=== PATIENT | female | born 1935 | race African-American/Black ===

== ENCOUNTER 2017-02-19 12:27 | Inpatient (IN) | payer MEDICARE ==
[~2017-02-19] VITALS: Ht 170.2 cm; Wt 81.6 kg
[~2017-02-19 12:27] MED LIST: ADALAT CC90 MG; ADVAIR 100/501 DISK INH; ASPIRIN EC81 M1 PO; ATARAX 25 MG TA25 MG PO; FLUTICASONE PRO16 GM NS; HUMULIN 70100 UNIT/1; HYDROCODONE-APA1 TAB PO; LASIX20 MG PO; LOFIBRA134 MG PO; MORPHINE IMMEDI15 MG; NITROQUICK0.4 MG SL; NOVOLIN 70/30 110 ML; OMEPRAZOLE20 M1 PO; SPIRIVA18 MCG INH; VENTOLIN HFA18 GM INH; VITAMIN D50000 UNIT PO; ZESTRIL20 MG
[2017-02-19 13:19] LABS: BASOPHILS 0.1 % (0-2); HEMATOCRIT 34.4 % (36.0-48.0); HEMOGLOBIN 11.4 g/dL (12-16); IMMATURE GRANULOCYTES 0.1 % (0-5); LYMPHOCYTES 17.7 % (15-50); MCH 30.8 pg (26.0-34.0); MCHC 33.1 g/dL (31.0-37.0); MEAN PLATELET VOLUME 10.8 fL (7.4-10.4); MONOCYTES 7.1 % (2-11); PLATELET COUNT 245 10x3/uL (130-400); WBC 7.3 10x3/uL (4.8-10.8)
[2017-02-19 13:42] LABS: ALBUMIN 3.6 g/dL (3.4-5.0); ALKALINE PHOSPHATASE 45 U/L (46-116); ALT (SGPT) 19 U/L (10-68); BILIRUBIN - TOTAL 0.27 mg/dL (0.2-1.3); CALCIUM 8.6 mg/dL (8.5-10.1); CARBON DIOXIDE 32.1 mmol/L (21.0-32.0); CHLORIDE - SERUM 102 mmol/L (98-107); CKMB 0.7 U/L (0.0-3.6); CREATINE KINASE 56 UL (21-215); CREATININE - SERUM 2.3 mg/dL (0.6-1.3); POTASSIUM - SERUM 3.3 mmol/L (3.5-5.1); PRO BNP 953 pg/mL (0-450); PROTEIN - SERUM 7.4 g/dL (6.4-8.2); SODIUM 140 mmol/L (136-145); UREA NITROGEN 35 mg/dL (7-18); eGFR NON AFRICAN AMERICAN 21 mL/min (90-120)
[2017-02-19 13:45] VITALS: BP 162/63; Ht 170.2 cm; Wt 81.6 kg
[2017-02-19 13:47] LABS: CALC OSMOLALITY 291 mosm/kg (275-300); GLUCOSE 196 mg/dL (74-106); TROPONIN-I < 0.017 ng/mL (0.000-0.060)
--- NOTE | 2017-02-19 14:03 | NUR ---
ARRIVED FROM ADMISSIONS VIA WC. PT PLACED IN HOSPITAL GOWN. SOME SOB NOTED. SEE ASSESSMENT FOR SPECIFICS. WILL CONTINUE TO MONITOR.
--- NOTE | 2017-02-19 16:00 | NUR ---
SITTING UP IN BED RESTING COMFORTABLY. OFFERS NO COMPLAINTS. CALL LIGHT IN REACH. WILL CONTINUE TO MONITOR
[2017-02-19 16:37] VITALS: BP 167/68
[2017-02-19 19:00] VITALS: BP 172/63
--- NOTE | 2017-02-19 19:35 | NUR ---
REST IN BED, AND WATCH TV, STATE SHE WATCH A GOOD TV CHANNEL.
[2017-02-19] MEDS ORDERED: MUCUS RELIEF400 MG PO (19:53)
[2017-02-19] MEDS ORDERED: NOVOLOG100 U/M1 SC (20:07)
[2017-02-19] MEDS ORDERED: ADVAIR HFA [SP]12 GM INH (20:08)
[2017-02-19] MEDS ORDERED: LEVEMIR100 U/M1 SC (20:09)
[2017-02-19 23:30] LABS: CKMB 0.6 U/L (0.0-3.6); CREATINE KINASE 60 UL (21-215)
[2017-02-20] VITALS: BP 155/70
--- NOTE | 2017-02-20 01:03 | NUR ---
REST IN BED, EYE CLOSE, CALL LIGHT WITHIN REACH.
[2017-02-20] MEDS ORDERED: NIFEDIPINE ER60 MG PO (01:29)
[2017-02-20 04:00] VITALS: BP 177/71
[2017-02-20 06:02] LABS: BASOPHILS 0.2 % (0-2); EOSINOPHILS 8.7 % (0-7); HEMATOCRIT 32.4 % (36.0-48.0); HEMOGLOBIN 10.8 g/dL (12-16); IMMATURE GRANULOCYTES 0.2 % (0-5); MCH 30.8 pg (26.0-34.0); MCHC 33.3 g/dL (31.0-37.0); MCV 92.3 fL (80.0-100.0); MONOCYTES 8.3 % (2-11); NEUTROPHILS 50.6 % (40-80); PLATELET COUNT 242 10x3/uL (130-400); RBC 3.51 10x6/uL (4.00-5.40); RDW 13.2 % (11.5-14.5); WBC 6.1 10x3/uL (4.8-10.8)
[2017-02-20 06:39] LABS: ALBUMIN 3.2 g/dL (3.4-5.0); ALKALINE PHOSPHATASE 41 U/L (46-116); CALCIUM 8.6 mg/dL (8.5-10.1); CARBON DIOXIDE 31.1 mmol/L (21.0-32.0); CHLORIDE - SERUM 102 mmol/L (98-107); CKMB 0.5 U/L (0.0-3.6); CREATINE KINASE 43 UL (21-215); CREATININE - SERUM 2.4 mg/dL (0.6-1.3); POTASSIUM - SERUM 3.3 mmol/L (3.5-5.1); PROTEIN - SERUM 6.7 g/dL (6.4-8.2); SODIUM 142 mmol/L (136-145); TROPONIN-I 0.019 ng/mL (0.000-0.060); UREA NITROGEN 41 mg/dL (7-18); eGFR NON AFRICAN AMERICAN 20 mL/min (90-120)
[2017-02-20 06:42] LABS: ALT (SGPT) 13 U/L (10-68); CALC OSMOLALITY 293 mosm/kg (275-300); GLUCOSE 110 mg/dL (74-106)
--- NOTE | 2017-02-20 07:05 | NUR ---
RECEIVED REPORT. ASSUMED CARE OF PATIENT. CALL LIGHT WITHIN REACH. PATIENT RESTING IN BED WITH EYES OPEN. RESP EVEN AND UNLABORED. DENIES NEEDS. PATIENT STATES SHE HAS PAIN TO HER RIGHT SHOULDER FOR ABOUT 3 MONTHS THAT HAS NOT BEEN ADDRESSED BY HER PCP. PATIENT HAS NO OTHER COMPLAINTS TO REPORT. NO DISTRESS.
[2017-02-20 08:10] VITALS: BP 160/63
--- NOTE | 2017-02-20 10:38 | NUR ---
MEDICATED FOR PAIN AT THIS TIME AND CALLED [facility], SPOKE WITH NIK TO REQUEST EGGCRATE MATTRESS FOR PATIENT.
--- NOTE | 2017-02-20 12:00 | NUR ---
FSBS 228. 8 UNITS HUMULIN R ADMINISTERED PER SLIDING SCALE.
--- NOTE | 2017-02-20 13:00 | NUR ---
EGG CRATE MATTRESS APPLIED TO BED.
[2017-02-20 15:59] VITALS: BP 128/59
--- NOTE | 2017-02-20 16:52 | NUR ---
FSBS 218. 8 UNITS HUMULIN INSULIN ADMINISTERED PER SLIDING SCALE.
--- NOTE | 2017-02-20 19:50 | NUR ---
REST IN BED AND WATCH TV.
--- NOTE | 2017-02-21 03:42 | NUR ---
REST QUIETLY IN BED, CALL LIGHT WITHIN REACH.
[2017-02-21 04:00] VITALS: BP 129/61
--- NOTE | 2017-02-21 06:20 | NUR ---
PT LYING IN BED, EYES CLOSED, RESPIRATIONS EVEN AND UNLABORED. CONTINUE TO MONITOR CLOSELY. BED LOW, CALL LIGHT IN REACH, SIDE RAILS X 2, HOB 25 - 30 DEGREES.
[2017-02-21 07:11] LABS: BASOPHILS 0.4 % (0-2); HEMATOCRIT 31.9 % (36.0-48.0); HEMOGLOBIN 10.5 g/dL (12-16); IMMATURE GRANULOCYTES 0.2 % (0-5); LYMPHOCYTES 33.3 % (15-50); MCH 30.4 pg (26.0-34.0); MCHC 32.9 g/dL (31.0-37.0); MCV 92.5 fL (80.0-100.0); MEAN PLATELET VOLUME 11.1 fL (7.4-10.4); MONOCYTES 9.6 % (2-11); NEUTROPHILS 44.5 % (40-80); PLATELET COUNT 225 10x3/uL (130-400); RBC 3.45 10x6/uL (4.00-5.40); RDW 13.4 % (11.5-14.5); WBC 4.6 10x3/uL (4.8-10.8)
[2017-02-21 07:36] LABS: ANION GAP 11.5 mmol/L (8-16); BILIRUBIN - TOTAL 0.2 mg/dL (0.2-1.3); CALCIUM 8.6 mg/dL (8.5-10.1); CARBON DIOXIDE 31.2 mmol/L (21.0-32.0); CREATININE - SERUM 2.2 mg/dL (0.6-1.3); POTASSIUM - SERUM 3.7 mmol/L (3.5-5.1); PROTEIN - SERUM 6.5 g/dL (6.4-8.2)
[2017-02-21 08:00] VITALS: BP 143/64
--- NOTE | 2017-02-21 08:07 | NUR ---
AM ROUNDING- RECEIVED REPORT FROM CERTIFIED ADAPTIVE PHYSICAL EDUCATOR NURSE CORNELIUS. PT IS CURRENTLY SITTING UP IN BED WITH EYES OPEN RESTING. PT STATES SHE HAS PAIN IN SHOULDER AREA. ON ROOM AIR. ON MONITOR SHOWING SR, HR 78. IV SEEN TO LEFT WRIST THAT IS CURRENTLY SALINE LOCKED. NO NEED AT CURRENT TIME. WILL CONTINUE TO MONITOR AND CONTINUE WITH PLAN OF CARE.
--- NOTE | 2017-02-21 11:50 | NUR ---
0930- UPON DOING SHIFT ASSESSMENT AND AM MEDICATIONS, PT DENIES ANY CHEST PAIN AT CURRENT TIME. WILL CONTINUE TO MONITOR.
[2017-02-21 12:00] VITALS: BP 125/54
--- NOTE | 2017-02-21 14:59 | NUR ---
PT IS CURRENTLY SITTING UP IN BED WITH HOB ELEVATED AT 30 DEGREES RESTING WATCHING TV. PT STATES SHE IS OK AND DENIES ANY FURTHER NEED AT THIS TIME. CALL LIGHT IS IN REACH. WILL CONTINUE TO MONITOR.
[2017-02-21 16:00] VITALS: BP 135/55
--- NOTE | 2017-02-21 18:40 | NUR ---
1800- PT IS CURRENTLY SITTING UP IN BED WITH EYES OPEN RESTING. PT DENIES ANY NEED AT THIS TIME. CALL LIGHT IS IN REACH. WILL CONTINUE TO MONITOR.
[2017-02-21 19:00] VITALS: BP 109/50
[2017-02-22] VITALS: BP 124/53
--- NOTE | 2017-02-22 01:53 | NUR ---
NURSING ROUNDS 02/21/17 21:00 - PT LYING IN BED, AWAKE, ALERT, ORIENTED, DENIED ANY NEEDS. PT REFUSES SCD'S AT THIS TIME. CONTINUE TO MONITOR CLOSELY. BED LOW, CALL LIGHT IN REACH, SIDE RAILS X 2, HOB 30 DEGREES.
--- NOTE | 2017-02-22 03:26 | NUR ---
PT GIVEN LEMON NOOKSACK SODA, VANILLA PUDDING AND SUGAR FREE JELLO FOR HS SNACK IMMEDIATELY AFTER 21:00 INSULIN ADMINISTRATION.
[2017-02-22 04:00] VITALS: BP 138/62
--- NOTE | 2017-02-22 05:15 | NUR ---
PT C/O FREQUENT AND RECURRENT COUGH, CAUSING DISTURBANCE IN REST AND SLEEP. PRN TUSSIONEX GIVEN. PT DENIES ANY OTHER NEEDS. CONTINUE TO MONITOR CLOSELY.
[2017-02-22 05:55] LABS: BASOPHILS 0.3 % (0-2); EOSINOPHILS 9.4 % (0-7); HEMATOCRIT 30.6 % (36.0-48.0); HEMOGLOBIN 10.2 g/dL (12-16); IMMATURE GRANULOCYTES 0.2 % (0-5); LYMPHOCYTES 37.1 % (15-50); MCH 30.9 pg (26.0-34.0); MCHC 33.3 g/dL (31.0-37.0); MCV 92.7 fL (80.0-100.0); MEAN PLATELET VOLUME 11.2 fL (7.4-10.4); MONOCYTES 12.3 % (2-11); NEUTROPHILS 40.7 % (40-80); PLATELET COUNT 223 10x3/uL (130-400); RDW 13.3 % (11.5-14.5)
[2017-02-22 05:59] LABS: WBC 5.8 10x3/uL (4.8-10.8)
[2017-02-22 06:19] LABS: BILIRUBIN - TOTAL 0.3 mg/dL (0.2-1.3); CALCIUM 8.6 mg/dL (8.5-10.1); CARBON DIOXIDE 29.1 mmol/L (21.0-32.0); CREATININE - SERUM 2.1 mg/dL (0.6-1.3); POTASSIUM - SERUM 4.1 mmol/L (3.5-5.1)
[2017-02-22 07:17] LABS: ERYTHROCYTE SEDIMENTATION RATE 15 mm/hr (0-30)
--- NOTE | 2017-02-22 07:55 | NUR ---
0715- AM ROUNDING- RECEIVED REPORT FROM EDITOR NURSE CELIO. PT IS CURRENTLY SIITIN LAYING IN BED WITH HOB ELEVATED AT 30 DEGREES WITH EYES OPEN RESTING. PT STATES SHE WOULD LIKE TO GET CLEANED UP TODAY AND GET SOME BRIEFS OR SOMETHING. I INFORMED PT THAT I CAN GET HER BRIEFS AND GET HER STUFF FOR A SHOWER. ON ROOM AIR. ON MONITOR SHOWING SR, HR 71. IV SEEN TO LEFT WRIST THAT IS CURRENTLY SALINE LOCKED. NO NEED AT THIS CURRENT TIME. WILL CONTINUE TO MONITOR AND CONTINUE WITH PLAN OF CARE.
[2017-02-22 08:00] VITALS: BP 154/65
--- NOTE | 2017-02-22 10:15 | NUR ---
MOO DON CAME TO INFORM ME THAT PT HAD THROWN UP IN BED. I WENT TO CHECK ON PT. I ASKED PT IF SHE THREW UP HER BREAKFAST DUE TO PT MENTIONING EARLIER ON SHIFT SHE ATE ALOT FOR BREAFAST AND SHE FELT LIKE SHE WAS GOING TO THROW UP. PT STATES SHE FEELS A LITTLE BETTER BUT STILL NAUSEOUS. WILL PAGE DR. GARCIA AND SEE ABOUT GETTING PT SOMETHING FOR N/V.
--- NOTE | 2017-02-22 10:21 | NUR ---
CALLED DR. DUVALL OFFICE. SPOKE WITH DR. DUVALL NURSE ZANDER. INFORMED HER OF PT BEING NAUSEOUS AND VOMITIING JUST A LITTLE WHILE AGO. NEW ORDERS RECEIVED PER DR. GARCIA. WILL PUT ORDERS IN GIVEN AND CONTINUE TO MONITOR.
[2017-02-22 12:00] VITALS: BP 172/63
[2017-02-22 16:00] VITALS: BP 148/60
--- NOTE | 2017-02-22 16:34 | NUR ---
Patient Name: CLAUDIA RICHARD Admission Status: Elective Accout number: [id number] Admission Date: 02-21-2017 : 1935 Admission Diagnosis: Attending: KAI Current LOS: 1 Anticipated DC Date: Planned Disposition: Home Primary Insurance: MEDICARE A & B Discharge Planning Comments: * Is the patient Alert and Oriented? Yes 0 * How many steps to enter\exit or inside your home? 2 0 * PCP DR. GARCIA 0 * Pharmacy [facility] 0 * Preadmission Environment Home with Family 0 * ADLs Independent 0 * Equipment Cane Nebulizer Walker 0 * Other Equipment UNKNOWN MEDICAL EQUIPMENT PROVIDER: [phone] 0 * List name and contact numbers for known caregivers / representatives who currently or will assist patient after discharge: MODESTO OSBORNE, DTR, 0 * Community resources currently utilized None 0 * Please name any agencies selected above. NONE 0 * Additional services required to return to the preadmission environment? No 0 * Can the patient safely return to the preadmission environment? Yes 0 * Has this patient been hospitalized within the prior 30 days at any hospital? No 0 CM MET WITH PT AND DAUGHTER, MODESTO, IN ROOM TO DISCUSS DISCHARGE PLANNING AND NEEDS. PT REPORTS LIVING AT HOME INDEPENDENTLY WITH HER ADULT DAUGHTER. PT HAS CANE, NEBLUIZER AND WALKER WITH OUT OF STATED MEDICAL EQUIPMENT PROVIDER. PT HAS NO OUTSIDE SERVICES ASSISTING IN THE HOME. CM DISCUSSED AVAILABILITY OF HOME HEALTH, REHAB SERVICES AND MEDICAL EQUIPMENT. PT AND DAUGHTER DENIED DISCHARGE NEEDS AT THIS TIME, DAUGHTER WILL PICK PT UP FOR DISCHARGE HOME. PT'S DAUGHTER ASKED IF INSURANCE WOULD COVER ELEVATED TOILET SEAT; CM CALLED PT'S EQUIPMENT PROVIDER MULTIPLE TIMES AND RECEIVED BUSY SIGNAL ([phone]). CM CALLED [facility] IN [place], WAS INFORMED THAT INSURANCE DID NOT COVER ETS, OUT OF POCKET COSTS IS ABOUT $40. CM NOTIFIED PT AND DAUGHTER IN ROOM. CM TO FOLLOW AND ASSIST NEEDED. Dumper Mold Cleaner: David Carlson
--- NOTE | 2017-02-22 18:11 | NUR ---
PT IS CURRENTLY SITTING UP IN BED WITH EYES OPEN RESTING. PT DENIES ANY NEED AT CURRENT TIME. CALL LIGHT IS IN REACH. WILL CONTINUE TO MONITOR.
[2017-02-22 19:00] VITALS: BP 131/48
[2017-02-22 20:07] LABS: BASOPHILS 0.1 % (0-2); EOSINOPHILS 0.1 % (0-7); HEMATOCRIT 32.3 % (36.0-48.0); HEMOGLOBIN 10.3 g/dL (12-16); IMMATURE GRANULOCYTES 0.3 % (0-5); LYMPHOCYTES 7.9 % (15-50); MCH 30.7 pg (26.0-34.0); MCHC 31.9 g/dL (31.0-37.0); MEAN PLATELET VOLUME 11.4 fL (7.4-10.4); MONOCYTES 6.6 % (2-11); PLATELET COUNT 235 10x3/uL (130-400); RBC 3.35 10x6/uL (4.00-5.40); RDW 13.3 % (11.5-14.5); WBC 6.9 10x3/uL (4.8-10.8)
[2017-02-22 20:08] LABS: MCV 96.4 fL (80.0-100.0)
[2017-02-22 20:11] LABS: APTT 36.9 SECONDS (22.8-39.4); INR 1.04 (0.85-1.17); PROTIME 13.5 SECONDS (11.6-15.0)
--- NOTE | 2017-02-22 20:40 | NUR ---
PT AWAKE, ALERT, ORIENTED, LYING IN BED, DENIES ANY NEEDS. CONTINUE TO MONITOR CLOSELY. BED LOW, CALL LIGHT IN REACH, SIDE RAILS X 2, HOB 30 DEGREES.
[2017-02-23] VITALS (12 sets, daily range): BP systolic 132–196; BP diastolic 48–79
[2017-02-23 06:40] LABS: BASOPHILS 0 % (0-2); EOSINOPHILS 0.1 % (0-7); HEMATOCRIT 32.5 % (36.0-48.0); HEMOGLOBIN 10.4 g/dL (12-16); IMMATURE GRANULOCYTES 0.1 % (0-5); LYMPHOCYTES 5.2 % (15-50); MEAN PLATELET VOLUME 11.2 fL (7.4-10.4); MONOCYTES 6.6 % (2-11); PLATELET COUNT 238 10x3/uL (130-400); RBC 3.47 10x6/uL (4.00-5.40); RDW 13.2 % (11.5-14.5); WBC 7.7 10x3/uL (4.8-10.8)
[2017-02-23 06:41] LABS: MCV 93.7 fL (80.0-100.0)
[2017-02-23 06:50] LABS: INR 1.04 (0.85-1.17); PROTIME 13.5 SECONDS (11.6-15.0)
[2017-02-23 06:51] LABS: APTT 33.9 SECONDS (22.8-39.4)
--- NOTE | 2017-02-23 07:00 | NUR ---
REPORT RECIEVED FROM OFF GOING NURSE. PT IN BED. ALERT AND ORIENTED X4. REMAINS NPO FOR TODAY BRONCHOSCOPY. D5 1/5 INFUSING AT 50 INTO HER LEFT HAND PIV. DRESSING C/D/I. HAS A WET BUT NON PRODUCTIVE COUGH. NO FAMILY AT HER BED SIDE. DENIES SOB OR PAIN AT THIS TIME. 0 NEEDS VOICED AT THIS TIME. CALL LIGHT IN REACH. WILL CONT POC
[2017-02-23 07:01] LABS: ALBUMIN 3.1 g/dL (3.4-5.0); ANION GAP 10.2 mmol/L (8-16); BILIRUBIN - TOTAL 0.26 mg/dL (0.2-1.3); CALCIUM 8.8 mg/dL (8.5-10.1); CARBON DIOXIDE 30.3 mmol/L (21.0-32.0); POTASSIUM - SERUM 4.5 mmol/L (3.5-5.1)
[2017-02-23 07:02] LABS: CREATININE - SERUM 2.8 mg/dL (0.6-1.3)
--- NOTE | 2017-02-23 09:00 | NUR ---
PILING SETTER ASSISTED PT TO SHOWER. BATHING SUPPLIES PROVIDED.
[2017-02-23 09:15] LABS: IMMUNOGLOBULIN E 132 IU/mL (0-100)
--- NOTE | 2017-02-23 09:41 | EC ---
PATIENT:CLAUDIA RICHARD DATE OF SERVICE: 02/19/17 SEX: F MEDICAL RECORD: [id number] DATE OF : [birth year] LOCATION:D. D.213 AGE OF PATIENT: 81 ADMISSION DATE: 02/21/17 REFERRING PHYSICIAN: INTERPRETING PHYSICIAN: MICHAEL LINDA MD ECHOCARDIOGRAM REPORT ECHO CHARGES 4 ECHO COMPLETE CLINICAL DIAGNOSIS: CHEST PAIN,DYSPNEA,PULM EDEMA ECHOCARDIOGRAPHIC MEASUREMENTS (adult normal given) AC root (d.<3.7cm) 3.5 cm LV Septum d (<1.2 cm> 1.2 cm Valve Excursion 1.8 cm LV Septum (systole) 1.3 cm Left Atria (s.<4.0cm> 4.0 cm LVPW d(<1.2cm) 1.4 cm RV (d.<2.3cm) 3.2 cm LVPW (sytole) 1.5 cm LV diastole(<5.6CM) 5.5 cm MV E-F(>70mm/sec) cm LV systole 4.3 cm LVOT Diameter 1.7 cm MV exc.(>10mm) 1.3 cm Est.ejection fraction (50-75%) % Pericardial Effusion N DOPPLER: LVIT cm/sec A 153 cm/sec E 104 cm/sec LA cm/sec RVSP 33 mmHg LVOT 140 cm/sec AOP1/2T m/s Asc. Ao 170 cm/sec RVOT 117 cm/sec RA cm/sec PA 120 cm/sec AV Gradient Peak 11.53mmHg AV Mean 5.45 mmHg AV Area 1.9 cm MV Gradient Peak 12.78mmHg MV Mean 2.73 mmHg MV Area cm COMMENTS: Cutter Operator Asbestos Shingle: Harriett ESTRADA Consumer Affairs Specialist: 1 Dr. Linda TAPE# PACS DATE OF SERVICE: 02/20/2017 Echocardiogram FINDINGS: 1. Left ventricular chamber size is within normal limits. Left ventricular systolic function is normal. Overall ejection fraction estimated at 55%. 2. Left atrium is upper limits of normal at 4.0 cm. Right atrium and right ventricular chamber sizes are mildly dilated. 3. Valvular structures have normal structure and motion. ECHOCARDIOGRAM REPORT [id number] CLAUDIA RICHARD 4. Doppler interrogation reveals mild mitral regurgitation, mild tricuspid regurgitation, no other valvular insufficiency or stenosis and pulmonary systolic pressure is normal estimated at 33 mmHg. 5. No evidence of pericardial effusion or left ventricular thrombus. TRANSINT:[id number] Voice Confirmation ID: [id number] DOCUMENT ID: [id number] MICHAEL LINDA MD at 0941 CC: [id number] DICTATION DATE: 02/21/17 1148 BLOW MOLDING MACHINE TENDER: 02/21/17 1421 ADM IN [id number] [place] [address]
--- NOTE | 2017-02-23 10:24 | CN ---
PATIENT NAME:CLAUDIA RICHARD MEDICAL RECORD: [id number] : [birth year] LOCATION:. D.2134 ADMIT DATE: 02/21/17 ACCOUNT: [id number] CONSULTING PHYSICIAN: TEO HILL MD REFERRING PHYSICIAN: HANDY GARCIA MD DATE OF CONSULTATION: 02/20/2017 HISTORY OF PRESENT ILLNESS: A pleasant 81-year-old female with no known history of coronary artery disease. She actually has a history of normal angiography approximately 3 years ago at the age of 78. She has been having intermittent chest pain. Also is having cough, sputum production, mostly clear. Pain is not exacerbated by activity. Cardiac enzymes are negative. We are asked to see her concerning her cardiovascular status. PAST MEDICAL HISTORY: Includes: 1. History of hypertension. 2. Dyslipidemia. 3. Diabetes mellitus. 4. Osteoarthritis. MEDICATIONS: Typically include albuterol, Spiriva 1 puff daily, nifedipine 90 daily, fenofibrate 134 daily, lisinopril 30 daily, aspirin 81 daily, Atarax 25 b.i.d. p.r.n., Lasix 20 daily, Advair Diskus b.i.d., insulin per scale and hydrocodone 10/325 q.6 hours as needed. ALLERGIES: EGG AND CYMBALTA. SOCIAL HISTORY: Lives here in [place]. She is a nonsmoker. Typically, she takes care of all of her ADLs. REVIEW OF SYSTEMS: The patient reports easy bruising but reports no swollen glands. The patient reports no fever, no night sweats, no significant weight gain, no significant weight loss. No significant exercise tolerance. The patient reports no dry eyes, no irritation, no vision change. Patient reports no difficulty hearing and no ear pain. Patient reports no frequent nose bleeds or nose and sinus problems. Patient reports on arm pain on exertion. No shortness of breath while lying down. No history of heart murmur. Patient reports no cough, no wheezing or coughing up blood. Patient reports no abdominal pain, no vomiting. Normal appetite. No diarrhea and not vomiting blood. No nausea and no constipation. Patient reports no incontinence. No difficulty urinating. No hematuria. No increased frequency. Patient reports no muscle aches. No weakness, no arthralgias, no back pain. No swelling of the extremities. Patient reports no abnormal mole, no jaundice, no rashes. Reports no loss of consciousness. No weakness and no numbness. No seizures, dizziness, or headaches. The patient reports no depression, no sleep disturbance, feeling safe in a relationship and no alcohol abuse. Patient reports on fatigue. Reports no runny nose or sinus pressure. No itching, no hives, and no frequent sneezing. PHYSICAL EXAMINATION: GENERAL: Pleasant female, appears stated age, in no acute distress. HEENT: Normocephalic and atraumatic. NECK: No JVD or bruit. HEART: Regular, occasional extrasystole, II/ systolic ejection murmur. LUNGS: Rod are clear. CONSULT REPORT [id number] JOSE MANUELCLAUDIA M ABDOMEN: Soft, nontender. EXTREMITIES: Pulses 2+. There is no edema. NEUROLOGIC: Grossly intact. IMPRESSION: Chest pain, somewhat atypical, so far enzymes are negative in the face of chronic renal insufficiency. Agree with echocardiographic study. Further recommendations based on the clinical course. Thank you for the consultation. TRANSINT:[id number] Voice Confirmation ID: [id number] DOCUMENT ID: [id number] TEO HILL MD at 1024 CC: [id number] DICTATION DATE: 02/20/17 1456 DURALUMIN METALWORKER: 02/20/17 1608 ADM IN [address] [id number] [place] [address]
--- NOTE | 2017-02-23 11:18 | NUR ---
C/O NAUSEA. PRN ZOFRAN GIVEN IV. EFFECTIVE. NO C/O NAUSEA AT THIS TIME.
[2017-02-23 12:14] LABS: ANA REFLEX - DIRECT Negative (Negative)
--- NOTE | 2017-02-23 13:17 | NUR ---
CONSENT FORMS SIGNED FOR [facility]. PREOP MEDICATION GIVEN. LEFT FOR [facility] VIA BED.
--- NOTE | 2017-02-23 14:15 | NUR ---
REPORT RECIEVED FROM OUTPATIENT FROM [facility]. PROCEDURE. ONLY RECIEVED 2 OF VERSED AND VS STABLE. BACK IN ROOM WITH FAMILY
--- NOTE | 2017-02-23 14:45 | NUR ---
DOOR CLOSED AND FAMILY WAS LAST SEEN IN PT'S ROOM. YELLING AND SCREAMING WAS NOTED FROM THE OPPOSITE SIDE OF THE DOOR. OPENED THE DOOR AND 3 DAUGHTERS WERE YELLING AT EACH OTHER ACROSS PT BED. EVERYONE EXCEPT THE PT WAS ASKED TO LEAVE THE ROOM. THEY LEFT THE ROOM AND THE WERE STILL YELLING AT EACH OTHER WHILE WALKING TOWARDS THE ER. SECERITY CALLED. PT OK AND UNHARMED AND ASKED WHAT HAPPEN SHE STATED "MODESTO IS THE ONE THAT TAKES CARE OF ME, MY OTHER DAUGHTER HASNT SEEN ME OR SPOKEN TO ME IN 4 YEARS AND NOW SHE SHOWS UP TRYING TO DECIDE WHATS BEST FOR ME. AND I ASKED HER TO APPOLOGIZE TO ME". PT SAFE AND VS STABLE. CALL L JUN IN REACH. WILL CONT POC
--- NOTE | 2017-02-23 18:45 | NUR ---
REPORT GIVEN TO ONCOMING NURSE. NO S/SX OF DISTRESS/DISCOMFORT. BREATHING NORMAL AND UNLABORED. CALL LIGHT IN REACH.
--- NOTE | 2017-02-23 19:20 | NUR ---
Received patient resting quietly in room. Alert and oriented x 4, refusing to wear SCDs at this time, Telemetry on, rhythm SR, Denies any pain or discomfort at this time. D5 1/2NS infusing @5ml/hr in PIV in left hand, site not inflamed or swollen, no drainage, no signs of infiltration.
--- NOTE | 2017-02-24 02:10 | NUR ---
Has been sleeping last couple of hours, no signs of distress, respirations unlabored. IV infusing TKVO.
[2017-02-24 04:00] VITALS: BP 144/52
--- NOTE | 2017-02-24 05:16 | NUR ---
playground monitor on, rhythm has been SR, currently HR = 74/min. Continues to sleep. Respirations easy and regular.
[2017-02-24 06:11] LABS: BASOPHILS 0 % (0-2); EOSINOPHILS 0 % (0-7); HEMATOCRIT 29.4 % (36.0-48.0); HEMOGLOBIN 9.5 g/dL (12-16); IMMATURE GRANULOCYTES 0.2 % (0-5); LYMPHOCYTES 3.6 % (15-50); MCH 30.3 pg (26.0-34.0); MCHC 32.3 g/dL (31.0-37.0); MCV 93.6 fL (80.0-100.0); MEAN PLATELET VOLUME 11.6 fL (7.4-10.4); MONOCYTES 4.3 % (2-11); NEUTROPHILS 91.9 % (40-80); PLATELET COUNT 218 10x3/uL (130-400); RBC 3.14 10x6/uL (4.00-5.40); RDW 13.5 % (11.5-14.5); WBC 11.3 10x3/uL (4.8-10.8)
[2017-02-24 06:34] LABS: ALBUMIN 2.8 g/dL (3.4-5.0); ANION GAP 11.4 mmol/L (8-16); BILIRUBIN - TOTAL 0.24 mg/dL (0.2-1.3); CALCIUM 8.4 mg/dL (8.5-10.1); CARBON DIOXIDE 29.2 mmol/L (21.0-32.0); CREATININE - SERUM 2.8 mg/dL (0.6-1.3); PROTEIN - SERUM 6.5 g/dL (6.4-8.2)
[2017-02-24 06:36] LABS: POTASSIUM - SERUM 5.6 mmol/L (3.5-5.1)
--- NOTE | 2017-02-24 07:45 | NUR ---
AM ROUNDS COMPLETED. PT A&O RESTING QUIETLY IN BED WITH EYE CLOSED. RR NONLABORED ON RA. PT DENIES ANY CURRENT PAIN OR NEEDS AT THIS TIME. CL IN REACH, BED IN LOWEST, SIDE RAILS X2. WILL CPOC.
[2017-02-24 08:00] VITALS: BP 127/56
--- NOTE | 2017-02-24 09:55 | NUR ---
MORNING MEDICATIONS PASSED AND PT SWALLOWED WITHOUT ANY DIFFICULTIES. PT RESTING AND WATCHING TV AND STATES BREAKFAST WAS "OKAY" INITIATED PTS IVPB INFUSING VIA L.HAND PIV WITH DRSG CDI AND SWAB CAPS IN USE. PT DENIES ANY CURRENT PAIN OR FURTHER NEEDS AT THIS TIME. CL IN REACH, BED IN LOWEST, SIDE RAIL X2. WILL CPOC.
--- NOTE | 2017-02-24 11:47 | NUR ---
FSBS 319. PT REC'D 20 UNITS PER SS INSULIN. PT VOICED THANKS AND IS WAITING FOR LUNCH. DENIES ANY CURRENT PAIN OR NEEDS. WILL CPOC.
[2017-02-24 12:00] VITALS: BP 146/63
[2017-02-24 16:00] VITALS: BP 139/46
[2017-02-24 16:09] LABS: ACID FAST SMEAR Negative (()); AFB SPECIMEN PROCESSING Concentration (())
--- NOTE | 2017-02-24 17:22 | NUR ---
NOTIFIED OF FSBS 474. TREATED PT PER SS OF 28UNITS. STATED THEY WILL START TO TAPER HER STERIODS AND NO EXTRA INSULIN IS NEEDED. PT READY FOR DINNER AND DENIES ANY CURRENT PAIN OR NEEDS. CL IN REACH, BED IN LOWEST, SIDE RAILS X2. WILL CPOC.
--- NOTE | 2017-02-24 17:56 | NUR ---
DISCONNECTED PT FROM IV FLUIDS SO SHE CAN TAKE A SHOWER. WRAPPED PIV SITE. NO FURTHER NEEDS AT THIS TIME. ARCHEOLOGIST CLASSICAL AT BEDSIDE TO ASSIST WITH SHOWER. WILL CPOC.
[2017-02-24 19:00] VITALS: BP 116/53
--- NOTE | 2017-02-24 19:40 | NUR ---
RESUMED CARE OF PT, LYING IN BED WITH EYES CLOSED, RESPIRAITONS EVEN AND UNLABORED ON ROOM AIR. 87 SR ON TELEMETRY. LEFT HAND SALINE LOCKED. NO NEEDS NOTED AT THIS TIME, CALL LIGHT IN REACH. WILL CONTINUE TO MONITOR. SEE NURSE ASSESSMENT.
--- NOTE | 2017-02-24 22:22 | NUR ---
NIGHT MEDS GIVEN. IV ACCIDENTALLY REMOVED TIP INTACT. WILL CONTINUE TO MONITOR.
[2017-02-25] VITALS: BP 135/57
--- NOTE | 2017-02-25 02:15 | NUR ---
LYING IN BED WITH EYES CLOSED, CALL LIGHT IN REACH. WILL CONTINUE TO MONITOR.
[2017-02-25 04:00] VITALS: BP 128/52
--- NOTE | 2017-02-25 06:21 | NUR ---
NO CHANGES FROM PREVIOUS ASSESSMENT, CALL LIGHT IN REACH. WILL CONTINUE TO MONITOR.
[2017-02-25 08:00] VITALS: BP 140/50
--- NOTE | 2017-02-25 12:00 | NUR ---
ALERT AND ORIENTED X4. UP AMBULATING IN [place] WITH PHYSICAL THERAPY. SINUS RHTHYM 92bpm ON TELEMETRY. PHYSICAL THERAPY SIGNS OFF INDEPENDENT. DENIES SOB OR PAIN. EXPRESS WANTING TO GO HOME. CONTINUE PLAN OF CARE AND SAFETY PRECAUTIONS.
[2017-02-25 16:00] VITALS: BP 149/55
[2017-02-25 19:56] VITALS: BP 157/64
--- NOTE | 2017-02-25 20:10 | NUR ---
RESUMED CAR OF PT, LYING IN BED RESPIRATIONS EVEN AND UNLABORED ON ROOM AIR. FAMILY AT BEDSIDE, PLAN OF CARE DISCUSSED. NO NEEDS AT THIS TIME. CALL LIGHT IN REACH. WILL CONTINUE TO MONITOR SEE NURSE ASESSSMENT.
--- NOTE | 2017-02-26 00:45 | NUR ---
LYING IN BED WITH EYES CLOSED, CALL LIGHT IN REACH. WILL CONTINUE TO MONITOR.
[2017-02-26 04:00] VITALS: BP 150/91
--- NOTE | 2017-02-26 07:15 | NUR ---
RESTING QUIETLY RESP UNLABORED NAD NOTED
--- NOTE | 2017-02-26 07:25 | NUR ---
ASSESSMENT COMPLETED. TELEMERTY SHOWS SR. RIGHT HAND SL. DENIES ANY NEED. CALL LIGHT IN REACH WITH SR UP. UP AB PATRICIA.
[2017-02-26 08:00] VITALS: BP 148/62
[2017-02-26 11:11] LABS: FUNGUS STAIN Final report (())
[2017-02-26] MEDS ORDERED: PREDNISONE20 MG PO (14:06)
[2017-02-26] MEDS ORDERED: SINGULAIR10 MG PO (14:10)
[2017-02-26] MEDS ORDERED: MUCINEX DM ER1 EAC1 PO (14:10)
[2017-02-26] MEDS ORDERED: FLUTICASONE PRO16 GM NASAL (14:10)
--- NOTE | 2017-02-26 15:45 | NUR ---
Patient Name: CLAUDIA RICHARD Encounter No: [id number] : 1935 Primary Insurance: MEDICARE A & B Anticipated DC Date: 02-26-2017 Planned Disposition: Home DCP follow-up note: CM MET WITH PT AND DAUGHTER IN ROOM TO DISCUSS DISCHARGE NEEDS AND PLANNING. CM DISCUSSED AVAILABILITY OF HOME HEALTH, REHAB SERVICES AND MEDICAL EQUIPMENT. PT AND DAUGHTER DENIED DISCHARGE NEEDS. DAUGHTER TO TRANSPORT HOME AT DISCHARGE TODAY. IMPORTANT MESSAGE FROM MEDICARE PROVIDED AND EXPLAINED. David Carlson, CASE MANAGEMENT
--- NOTE | 2017-02-26 16:43 | NUR ---
PT DCD. IV DCD WITH TIP INTACT. TO PRIVATE CAR PER WHEELCHAIR
[2017-02-26 17:10] LABS: ANCA - ANTIMYELOPEROXIDASE <9.0 U/mL (0.0-9.0); ANCA - ANTIPROTEINASE 3 <3.5 U/mL (0.0-3.5); ANCA - ATYPICAL <1:20 titer (Neg:<1:20); ANCA - CYTOPLASMIC <1:20 titer (Neg:<1:20); ANCA - PERINUCLEAR <1:20 titer (Neg:<1:20)
[2017-03-05 09:09] LABS: FUNGUS MYCOLOGY CULTURE Preliminary report (())
== END 2017-02-26 16:45 | disposition home or self-care (01) | DRG 192 ==
LOC: D.M2 12:27 → OBSVTIME 12:29 → D.M2 02-21 15:25
PROVIDERS: Internal Medicine Pulmonary Disease; ADMIT Family Medicine
PROC: 0BB38ZX Excision of Right Main Bronchus, Via Natural or Artificial Opening Endoscopic, Diagnostic (ICD-10-PCS; 2017-02-23)
PROC: 0BB78ZX Excision of Left Main Bronchus, Via Natural or Artificial Opening Endoscopic, Diagnostic (ICD-10-PCS; principal; 2017-02-23 13:37)
DX: J44.1 Chronic obstructive pulmonary disease with (acute) exacerbation (principal); D64.9 Anemia, unspecified; I08.1 Rheumatic disorders of both mitral and tricuspid valves; T17.990A Other foreign object in respiratory tract, part unspecified in causing asphyxiation, initial encounter; E87.6 Hypokalemia; K21.9 Gastro-esophageal reflux disease without esophagitis; E11.22 Type 2 diabetes mellitus with diabetic chronic kidney disease; I12.9 Hypertensive chronic kidney disease with stage 1 through stage 4 chronic kidney disease, or unspecified chronic kidney disease; N18.3 Chronic kidney disease, stage 3 (moderate); Z79.4 Long term (current) use of insulin; E78.5 Hyperlipidemia, unspecified; E55.9 Vitamin D deficiency, unspecified; K59.00 Constipation, unspecified; J30.9 Allergic rhinitis, unspecified; D72.1 Eosinophilia; Z87.891 Personal history of nicotine dependence

== ENCOUNTER → 2017-07-12 10:38 | Outpatient (CLI) | payer MEDICARE ==
[2017-02-19 13:45] VITALS: BMI 26.5
[~2017-07-12 10:38] MED LIST changes: +ADVAIR HFA [SP]12 GM INH; +FLUTICASONE PRO16 GM NASAL; +LEVEMIR100 U/M1 SC; +MUCINEX DM ER1 EAC1 PO; +MUCUS RELIEF400 MG PO; +NIFEDIPINE ER60 MG PO; +NOVOLOG100 U/M1 SC; +PREDNISONE20 MG PO; +SINGULAIR10 MG PO
== END | disposition home or self-care (01) ==
LOC: D.RT 10:38
DX: J45.909 Unspecified asthma, uncomplicated (principal)

== ENCOUNTER → 2017-07-27 09:47 | Outpatient (CLI) | payer MEDICARE ==
[2017-02-19 13:45] VITALS: BMI 26.5
== END | disposition home or self-care (01) ==
LOC: D.LAB 07-19 09:15 → D.CT 07-19 09:30 → D.NM 07-19 10:00 → D.LAB 09:47
DX: R60.0 Localized edema (principal); J98.4 Other disorders of lung